=== PATIENT | male | born 1960 | race Caucasian/White ===

== ENCOUNTER 2023-02-05 23:06 | Inpatient (IN) | payer OTHER ==
[2023-02-05] MEDS ORDERED: Morphine 4 MG/ML VIAL IVPUSH ONE (23:09)
[2023-02-05] MEDS ORDERED: Furosemide 40 MG/4 ML VIAL IVPUSH ONE ×2 (23:09→23:52)
[2023-02-05 23:25] LABS: BASOPHILS ABSOLUTE AUTO 0.1 x10-3/uL (0.0-0.3); BASOPHILS PERCENT AUTO 0.7 % (0.3-3.8); EOSINOPHILS ABSOLUTE AUTO 0.7 x10-3/uL (0.0-0.6); HEMATOCRIT 36.9 % (38.3-50.1); HEMOGLOBIN 12.3 g/dL (12.9-17.7); LYMPHOCYTES ABSOLUTE AUTO 1.3 x10-3/uL (0.5-4.5); LYMPHOCYTES PERCENT AUTO 13.1 % (15.8-45.3); MEAN CORPUSCULAR HGB CONC 33.4 g/dL (28.7-35.3); MEAN PLATELET VOLUME 7.2 fL (6.7-11.0); MONOCYTES PERCENT AUTO 9.6 % (5.5-15.2); NEUTROPHILS ABSOLUTE AUTO 7.1 x10-3/uL (1.7-6.9); NEUTROPHILS PERCENT AUTO 69.6 % (40.3-71.8); PLATELET COUNT,PLT 255 x10(3)uL (117-477); RED BLOOD CELL COUNT 3.97 x10(6)uL (3.90-5.90); RED CELL DISTRIBUTION WIDTH 15.4 % (12.4-15.0); WHITE BLOOD CELL COUNT,WBC 10.2 x10-3/uL (3.2-10.1)
[2023-02-05 23:29] LABS: BLOOD UREA NITROGEN,BUN 21 mg/dL (7-18); BUN/CREATININE RATIO 11.1 (9-20); CALCIUM 8.7 mg/dL (8.6-10.2); CARBON DIOXIDE,CO2 24 mmol/L (21-32); CHLORIDE,CL 109 mmol/L (100-110); CREATININE 1.9 mg/dL (0.70-1.30); ESTIMATED GFR 39 mL/min (>60); GLUCOSE RANDOM 133 mg/dL (80-116); POTASSIUM,K 3.7 mmol/L (3.5-5.3); SODIUM,NA 144 mmol/L (135-145)
[2023-02-05 23:35] LABS: A/G RATIO 0.5; ALANINE AMINOTRANSFERASE,ALT 19 U/L (12-36); ALKALINE PHOSPHATASE 224 IU/L (56-112); ASPARTATE AMNIOTRANSFERASE,AST 24 IU/L (5-25); BILIRUBIN TOTAL 0.3 mg/dL (0.1-1.3); PROTEIN TOTAL,TP 6.2 g/dL (6.0-8.0)
[2023-02-05] MEDS ORDERED: Nitroglycerin 0.4 MG Tab.SL SL ONE (23:39)
[2023-02-05 23:41] LABS: TROPONIN I 43.9 pg/mL (4.0-60.3)
[2023-02-05] MEDS ORDERED: Enoxaparin 30 MG/0.3 ML Syringe SUBCUT SCH (23:45)
[2023-02-06] MEDS: Sodium Chloride 0.9% 10 ML Syringe FLUSH PRN ×7 (01:12→20:47)
[2023-02-06] MEDS: Labetalol 20 MG/4 ML Syringe IVPUSH PRN ×3 (01:48→22:51)
[2023-02-06 06:41] LABS: BASOPHILS ABSOLUTE AUTO 0.1 x10-3/uL (0.0-0.3); BASOPHILS PERCENT AUTO 1.2 % (0.3-3.8); EOSINOPHILS ABSOLUTE AUTO 0.6 x10-3/uL (0.0-0.6); EOSINOPHILS PERCENT AUTO 7.2 % (0.1-6.8); HEMATOCRIT 33.1 % (38.3-50.1); LYMPHOCYTES ABSOLUTE AUTO 1.5 x10-3/uL (0.5-4.5); LYMPHOCYTES PERCENT AUTO 17.2 % (15.8-45.3); MEAN CORPUSCULAR HEMOGLOBIN 30.9 pg (27.0-33.3); MEAN CORPUSCULAR HGB CONC 33.2 g/dL (28.7-35.3); MEAN PLATELET VOLUME 7.5 fL (6.7-11.0); MONOCYTES ABSOLUTE AUTO 0.8 x10-3/uL (0.0-1.2); MONOCYTES PERCENT AUTO 9.6 % (5.5-15.2); NEUTROPHILS ABSOLUTE AUTO 5.5 x10-3/uL (1.7-6.9); NEUTROPHILS PERCENT AUTO 64.8 % (40.3-71.8); PLATELET COUNT,PLT 210 x10(3)uL (117-477); RED BLOOD CELL COUNT 3.56 x10(6)uL (3.90-5.90); RED CELL DISTRIBUTION WIDTH 15.2 % (12.4-15.0); WHITE BLOOD CELL COUNT,WBC 8.6 x10-3/uL (3.2-10.1)
[2023-02-06 06:51] LABS: A/G RATIO 0.5; ALANINE AMINOTRANSFERASE,ALT 13 U/L (12-36); ALKALINE PHOSPHATASE 187 IU/L (56-112); ASPARTATE AMNIOTRANSFERASE,AST 18 IU/L (5-25); BILIRUBIN TOTAL 0.4 mg/dL (0.1-1.3); BLOOD UREA NITROGEN,BUN 20 mg/dL (7-18); BUN/CREATININE RATIO 10.5 (9-20); CALCIUM 8.2 mg/dL (8.6-10.2); CARBON DIOXIDE,CO2 25 mmol/L (21-32); CHLORIDE,CL 111 mmol/L (100-110); CREATININE 1.9 mg/dL (0.70-1.30); EST CRCL DRUG DOSING (CG) 35.44 mL/min; ESTIMATED GFR 39 mL/min (>60); GLUCOSE RANDOM 105 mg/dL (80-116); POTASSIUM,K 3.6 mmol/L (3.5-5.3); PROTEIN TOTAL,TP 5.2 g/dL (6.0-8.0); SODIUM,NA 144 mmol/L (135-145)
[2023-02-06 06:52] LABS: ALBUMIN 1.7 g/dL (3.2-4.6)
[2023-02-06] MEDS ORDERED: Metolazone 5 MG Tab PO ONE (07:51)
[2023-02-06] MEDS ORDERED: Metolazone 2.5 MG Tab PO ONE (09:51)
[2023-02-06] MEDS ORDERED: Cholestyramine/Sucrose Powder 4 GM Packet PO SCH (11:15)
[2023-02-06] MEDS ORDERED: Atenolol 25 MG Tab ONE (11:40)
[2023-02-06] MEDS ORDERED: Atenolol 25 MG Tab PO SCH (11:45)
[2023-02-06] MEDS: Gemfibrozil 600 MG Tab PO SCH (11:53)
[2023-02-06] MEDS: Allopurinol 100 MG Tab PO SCH (11:53)
[2023-02-06] MEDS: glipiZIDE 5 MG Tab PO SCH ×2 (11:53→17:42)
[2023-02-06] MEDS: atorvaSTATin 40 MG Tab PO SCH (11:53)
[2023-02-06] MEDS: Lisinopril 20 MG Tab PO SCH (11:53)
[2023-02-06] MEDS: Multivitamin Tab PO SCH (11:53)
[2023-02-06] MEDS: hydrALAZINE 25 MG Tab PO SCH ×2 (11:54→20:04)
[2023-02-06] MEDS: Aspirin 81 MG Tab.EC PO SCH (11:55)
[2023-02-06] MEDS ORDERED: Labetalol 20 MG/4 ML Syringe IVPUSH ONE (17:13)
[2023-02-06] MEDS ORDERED: Furosemide 40 MG/4 ML VIAL IVPUSH ONE (17:16)
[2023-02-06] MEDS ORDERED: metFORMIN 500 MG Tab.ER PO SCH (18:00)
[2023-02-06] MEDS ORDERED: hydrALAZINE 20 MG/ML SDV IVPUSH STA (20:26)
[2023-02-06] MEDS ORDERED: Melatonin 3 MG Tab PO PRN (22:30)
[2023-02-06] MEDS: Melatonin 3 MG Tab PO PRN (22:36)
[2023-02-06] MEDS: Acetaminophen 500 MG Tab PO PRN (22:42)
[2023-02-06] MEDS ORDERED: Enoxaparin 30 MG/0.3 ML Syringe SUBCUT SCH (23:00)
[2023-02-06] MEDS ORDERED: Enoxaparin 30 MG/0.3 ML Syringe SUBCUT ONE (23:00)
[2023-02-07] MEDS: hydrALAZINE 25 MG Tab PO SCH ×3 (02:53→20:32)
[2023-02-07] MEDS: glipiZIDE 5 MG Tab PO SCH ×2 (06:32→17:51)
[2023-02-07 07:20] LABS: BASOPHILS ABSOLUTE AUTO 0.1 x10-3/uL (0.0-0.3); BASOPHILS PERCENT AUTO 1.2 % (0.3-3.8); EOSINOPHILS ABSOLUTE AUTO 0.7 x10-3/uL (0.0-0.6); EOSINOPHILS PERCENT AUTO 8.7 % (0.1-6.8); HEMATOCRIT 35.8 % (38.3-50.1); HEMOGLOBIN 11.9 g/dL (12.9-17.7); LYMPHOCYTES ABSOLUTE AUTO 1.5 x10-3/uL (0.5-4.5); LYMPHOCYTES PERCENT AUTO 17.8 % (15.8-45.3); MEAN CORPUSCULAR HEMOGLOBIN 30.9 pg (27.0-33.3); MEAN CORPUSCULAR HGB CONC 33.2 g/dL (28.7-35.3); MEAN PLATELET VOLUME 7.4 fL (6.7-11.0); MONOCYTES ABSOLUTE AUTO 0.8 x10-3/uL (0.0-1.2); MONOCYTES PERCENT AUTO 9.4 % (5.5-15.2); NEUTROPHILS ABSOLUTE AUTO 5.2 x10-3/uL (1.7-6.9); NEUTROPHILS PERCENT AUTO 62.9 % (40.3-71.8); PLATELET COUNT,PLT 254 x10(3)uL (117-477); RED BLOOD CELL COUNT 3.85 x10(6)uL (3.90-5.90); RED CELL DISTRIBUTION WIDTH 15.3 % (12.4-15.0); WHITE BLOOD CELL COUNT,WBC 8.2 x10-3/uL (3.2-10.1)
[2023-02-07 07:33] LABS: BLOOD UREA NITROGEN,BUN 23 mg/dL (7-18); CALCIUM 8.7 mg/dL (8.6-10.2); CARBON DIOXIDE,CO2 26 mmol/L (21-32); CHLORIDE,CL 106 mmol/L (100-110); EST CRCL DRUG DOSING (CG) 29.28 mL/min; ESTIMATED GFR 31 mL/min (>60); GLUCOSE RANDOM 89 mg/dL (80-116); POTASSIUM,K 3.8 mmol/L (3.5-5.3); SODIUM,NA 142 mmol/L (135-145)
[2023-02-07 07:38] LABS: CREATININE 2.3 mg/dL (0.70-1.30)
[2023-02-07] MEDS: Aspirin 81 MG Tab.EC PO SCH (08:47)
[2023-02-07] MEDS: Gemfibrozil 600 MG Tab PO SCH (08:47)
[2023-02-07] MEDS: atorvaSTATin 40 MG Tab PO SCH (08:47)
[2023-02-07] MEDS: Lisinopril 20 MG Tab PO SCH (08:47)
[2023-02-07] MEDS: Multivitamin Tab PO SCH (08:47)
[2023-02-07] MEDS: Allopurinol 100 MG Tab PO SCH (08:48)
[2023-02-07] MEDS: Cholestyramine/Sucrose Powder 4 GM Packet PO SCH ×2 (08:51→11:02)
[2023-02-07] MEDS ORDERED: Labetalol 20 MG/4 ML Syringe IVPUSH ONE ×2 (09:27→12:30)
[2023-02-07] MEDS: Sodium Chloride 0.9% 10 ML Syringe FLUSH PRN ×2 (09:50→13:02)
[2023-02-07] MEDS: Furosemide 20 MG Tab PO SCH (10:35)
[2023-02-07] MEDS ORDERED: cloNIDine 0.1 MG Tab PO ONE (14:21)
[2023-02-07] MEDS: Acetaminophen 500 MG Tab PO PRN (20:45)
[2023-02-07] MEDS ORDERED: amLODIPine 10 MG Tab PO SCH (21:00)
[2023-02-07] MEDS ORDERED: Enoxaparin 30 MG/0.3 ML Syringe SUBCUT SCH (21:00)
[2023-02-07] MEDS: Melatonin 3 MG Tab PO PRN (21:39)
[2023-02-08] MEDS: hydrALAZINE 25 MG Tab PO SCH ×2 (05:20→11:04)
[2023-02-08 06:48] LABS: BASOPHILS ABSOLUTE AUTO 0.1 x10-3/uL (0.0-0.3); BASOPHILS PERCENT AUTO 1.1 % (0.3-3.8); EOSINOPHILS ABSOLUTE AUTO 0.6 x10-3/uL (0.0-0.6); EOSINOPHILS PERCENT AUTO 9.7 % (0.1-6.8); HEMATOCRIT 30.1 % (38.3-50.1); LYMPHOCYTES ABSOLUTE AUTO 1.1 x10-3/uL (0.5-4.5); LYMPHOCYTES PERCENT AUTO 17.6 % (15.8-45.3); MEAN CORPUSCULAR HEMOGLOBIN 30.8 pg (27.0-33.3); MEAN CORPUSCULAR HGB CONC 33.2 g/dL (28.7-35.3); MEAN CORPUSCULAR VOLUME 92.9 fL (80.8-98.7); MEAN PLATELET VOLUME 7.4 fL (6.7-11.0); MONOCYTES ABSOLUTE AUTO 0.7 x10-3/uL (0.0-1.2); MONOCYTES PERCENT AUTO 11.4 % (5.5-15.2); NEUTROPHILS ABSOLUTE AUTO 3.8 x10-3/uL (1.7-6.9); NEUTROPHILS PERCENT AUTO 60.2 % (40.3-71.8); PLATELET COUNT,PLT 179 x10(3)uL (117-477); RED BLOOD CELL COUNT 3.24 x10(6)uL (3.90-5.90); RED CELL DISTRIBUTION WIDTH 15.4 % (12.4-15.0); WHITE BLOOD CELL COUNT,WBC 6.4 x10-3/uL (3.2-10.1)
[2023-02-08 06:55] LABS: BLOOD UREA NITROGEN,BUN 30 mg/dL (7-18); CALCIUM 8.3 mg/dL (8.6-10.2); CARBON DIOXIDE,CO2 27 mmol/L (21-32); CHLORIDE,CL 107 mmol/L (100-110); EST CRCL DRUG DOSING (CG) 29.28 mL/min; ESTIMATED GFR 31 mL/min (>60); GLUCOSE RANDOM 78 mg/dL (80-116); POTASSIUM,K 3.6 mmol/L (3.5-5.3); SODIUM,NA 142 mmol/L (135-145)
[2023-02-08 07:06] LABS: CREATININE 2.3 mg/dL (0.70-1.30)
[2023-02-08] MEDS: glipiZIDE 5 MG Tab PO SCH (08:56)
[2023-02-08] MEDS: Aspirin 81 MG Tab.EC PO SCH (08:57)
[2023-02-08] MEDS: Furosemide 20 MG Tab PO SCH (08:57)
[2023-02-08] MEDS: Gemfibrozil 600 MG Tab PO SCH (08:58)
[2023-02-08] MEDS: atorvaSTATin 40 MG Tab PO SCH (08:58)
[2023-02-08] MEDS: Lisinopril 20 MG Tab PO SCH (08:59)
[2023-02-08] MEDS: Multivitamin Tab PO SCH (09:00)
[2023-02-08] MEDS: Allopurinol 100 MG Tab PO SCH (09:01)
== END 2023-02-08 15:18 | disposition home or self-care (01) | DRG 291 ==
LOC: FB.ED 23:06 → FB.MS 02-06 00:46 → OBSVTOIN 02-07 09:40 → FB.MS 02-08 15:17
PROVIDERS: ADMIT Family Medicine; ATTEND Student in an Organized Health Care Education/Training Program
DX: I13.0 Hypertensive heart and chronic kidney disease with heart failure and stage 1 through stage 4 chronic kidney disease, or unspecified chronic kidney disease (principal); I50.33 Acute on chronic diastolic (congestive) heart failure; Z68.41 Body mass index [BMI] 40.0-44.9, adult; I73.9 Peripheral vascular disease, unspecified; N18.31 Chronic kidney disease, stage 3a; I89.0 Lymphedema, not elsewhere classified; K21.9 Gastro-esophageal reflux disease without esophagitis; M1A.9XX0 Chronic gout, unspecified, without tophus (tophi); G47.33 Obstructive sleep apnea (adult) (pediatric); E66.01 Morbid (severe) obesity due to excess calories; E11.22 Type 2 diabetes mellitus with diabetic chronic kidney disease; F17.210 Nicotine dependence, cigarettes, uncomplicated; Z79.82 Long term (current) use of aspirin; Z79.899 Other long term (current) drug therapy
CPT/HCPCS: 36415; 71045; 80048; 80053; 83880; 84484; 85025; 93005; 93010; 96372; 96374; 96375; 96376; 99222; 99232; 99239; 99285; 99285-25; A9270-GY; C8929; G0378; J0360; J1650; J1940; J2270; J3490